=== PATIENT | female | born 1960 | race Two or more races ===

== ENCOUNTER 2019-02-08 00:08 | Emergency (ER) | payer OTHER ==
[~2019-02-08] VITALS: Ht 162.6 cm; Wt 89.4 kg
[~2019-02-08 00:08] MED LIST: CYCLOBENZAPRINE10 MG PO; GABAPENTIN300 MG PO; KETO10TA2 PO; NAPROXEN500 MG PO
[2019-02-08] MEDS ORDERED: COZAAR50 MG (00:18)
[2019-02-08] MEDS ORDERED: PENTOXIFYLLINE400 MG (00:18)
[2019-02-08] MEDS ORDERED: CYCLOBENZAPRINE10 MG PO (08:15)
[2019-02-08] MEDS ORDERED: VOLTAREN-XR100 MG PO (08:15)
== END 2019-02-08 09:04 | disposition home or self-care (01) ==
LOC: ER 00:08
DX: M54.5 Low back pain (principal)

== ENCOUNTER 2019-06-03 12:00 | Emergency (ER) | payer OTHER ==
[~2019-06-03] VITALS: Ht 162.6 cm; Wt 88.9 kg
[~2019-06-03 12:00] MED LIST changes: +COZAAR50 MG; +PENTOXIFYLLINE400 MG; +VOLTAREN-XR100 MG PO
[2019-06-03] MEDS ORDERED: MONTELUKAST SODI4 M1 (12:31)
== END 2019-06-03 16:22 | disposition home or self-care (01) ==
LOC: ER 12:00
DX: M54.32 Sciatica, left side (principal)

== ENCOUNTER 2022-07-23 14:26 | Emergency (ER) | payer OTHER ==
[~2022-07-23] VITALS: Ht 162.6 cm; Wt 79.4 kg
[~2022-07-23 14:26] MED LIST changes: +MONTELUKAST SODI4 M1
[2022-07-23] MEDS ORDERED: METAXALONE400 MG PO (22:02)
[2022-07-23] MEDS ORDERED: MEDROLPACK PO (22:02)
[2022-07-23] MEDS ORDERED: TYLENOL ARTHRI650 MG PO (22:02)
[2022-07-23] MEDS ORDERED: KETO10TA2 PO (22:02)
== END 2022-07-23 23:40 | disposition home or self-care (01) ==
LOC: ER 14:26
DX: M54.31 Sciatica, right side (principal); M54.59 Other low back pain; M53.87 Other specified dorsopathies, lumbosacral region; I10 Essential (primary) hypertension